=== PATIENT | male | born 1970 | race African-American/Black ===

== ENCOUNTER 2020-12-08 11:37 | Inpatient (IN) | payer MEDICAID, OTHER, SELFPAY ==
--- NOTE | ~2020-12-08 | CT_ITS ---
PROCEDURE: CT-GUIDED BIOPSY, LIVER CLINICAL INFORMATION: Right hepatic mass. COMPARISON: 12/08/2020 TECHNIQUE: CT fluoroscopic-guided core biopsy right liver mass. This CT examination was performed using dose optimization techniques as appropriate, variously including the following: *Automated exposure control. *Adjustment of mA and/or kV according to patient size (this includes techniques or standardized protocols for targeted exams where dose is matched to indication/reason for exam; i.e. extremities or head). *Use of iterative reconstruction technique. DLP: 445 mGy-cm FINDINGS: Informed consent was obtained from the patient prior to the procedure. During this process, the procedure and potential alternatives were explained, along with the intended outcome and benefits. The risks of the procedure, as well as the risk of not doing the procedure, were discussed. The patient was given the opportunity to ask questions regarding the procedure and appeared competent to make medical decisions. A signed consent form which documents this discussion was placed in the medical record. There is noted to be pericardial effusion, bilateral pleural effusions, and ascites present. There are a few right pericardial enlarged lymph nodes present. The liver has a lobular contour. The right hepatic mass is not as evident without IV contrast and biopsy was performed using landmarks. The farhad hepatis soft tissue mass is evident. Cholelithiasis is seen. There was a good window laterally into the mass where there was not a large amount of pleural fluid present and, therefore, preprocedure paracentesis was not performed. Conscious sedation was used for the study. Conscious Sedation Time: 25 minutes. Using sterile technique and CT fluoroscopic guidance, a 17-gauge coaxial needle was directed into the right lobe. Two 18-gauge core biopsies were obtained. Preliminary pathologic result was of satisfactory sample. Patient tolerated the procedure without difficulty. Postprocedure CT scan did not demonstrate any evidence of hemorrhage or subcapsular fluid collection. CT/CT biopsy liver IMPRESSION: Successful CT fluoroscopic-guided core biopsy right lobe of liver lesion.
--- NOTE | ~2020-12-08 | CT_ITS ---
EXAMINATION: CT CHEST, ABDOMEN AND PELVIS WITH CONTRAST CLINICAL INFORMATION: Cough and abdominal pain right-sided COMPARISON: No pertinent prior studies are available for comparison. TECHNIQUE: Multidetector volumetric imaging was performed from the thoracic inlet through the pubic symphysis following administration of oral and 85 mL of Omnipaque 350 intravenous contrast. Sagittal and coronal reformatted images were obtained on the technologist workstation. This CT examination was performed using dose optimization techniques as appropriate, variously including the following: *Automated exposure control *Adjustment of mA and/or kV according to patient size (this includes techniques or standardized protocols for targeted exams where dose is matched to indication/reason for exam; i.e. extremities or head) *Use of iterative reconstruction technique DLP: 593 mGy-cm FINDINGS: Motion degradation limits assessment. CHEST: LUNGS: The lungs are clear with no evidence of inflammation or nodules. Minor dependent atelectasis. MEDIASTINUM: The mediastinum is normal. Central vascular structures are unremarkable. No hilar or mediastinal lymphadenopathy. PERICARDIUM/PLEURA: There is moderate pericardial effusion and small layering pleural effusions. CHEST WALL/AXILLA: Symmetrical gynecomastia. ABDOMEN/PELVIS: LIVER, GALLBLADDER, BILIARY TREE: Liver is very nodular's and cirrhotic appearing. There is a very ill-defined area of heterogeneously decreased attenuation throughout the right lobe suspicious for a mass lesion. Hepatic and portal vessels appear grossly patent. No biliary ductal dilatation. Gallstones without acute inflammatory changes. PANCREAS: Unremarkable. SPLEEN: Enlarged measuring up to approximately 14.6 cm. No discrete lesion. ADRENAL GLANDS: Unremarkable. KIDNEYS AND URETERS: Not obstructing multiple small central renal calculi measuring 3 to 4 mm in maximum diameter. Left renal cortical cysts. No perinephric abnormality. BLADDER: Unremarkable. GASTROINTESTINAL TRACT: The small and large bowel are unremarkable. The appendix is unremarkable. ABDOMINAL WALL: No hernia is demonstrated. LYMPH NODES: Markedly enlarged soft tissue mass favoring a mantle of pathologic lymph nodes noted within the farhad hepatis measuring up to 6.7 x 6.1 cm transaxially. This is not appear to be related to duodenum or pancreas. Generalized moderate ascites throughout the abdomen and pelvis. Additional pathologically enlarged lymphadenopathy within the level of the celiac axis as well as retroperitoneum. VASCULAR: Unremarkable. PELVIC VISCERA: Unremarkable. OSSEOUS STRUCTURES: Unremarkable. CT/CT abdomen pelvis w con IMPRESSION: Ominous pattern of disease. Cirrhotic liver with a large mass replacing the right lobe which can be seen with hepatocellular carcinoma or even cholangiocarcinoma. Pathologic lymph nodes throughout the abdomen and retroperitoneum. Ascites, pleural and pericardial effusions are also present.
[2020-12-08 11:53] VITALS: BP 98/59; PULSE 75; RESP 18; TEMP 36.7; O2SAT 100; BMI 29.0
[2020-12-08 13:03] LABS: Basophils Absolute Auto 0.1 X10*3/uL (0.0-0.2); Basophils Percent Auto 0.2 % (0-2); Eosinophils Absolute Auto 0.2 X10*3/uL (0.0-0.4); Eosinophils Percent Auto 0.5 % (0-4); Hematocrit 35.7 % (42-52); Hemoglobin 11.6 g/dl (14.0-18.0); Imm Gran Abs Auto 0.37 X10*3/uL (0.00-0.03); Lymphocytes Absolute Auto 1.4 X10*3/uL (1.2-4.9); Lymphocytes Percent Auto 3.9 % (20-40); MANUAL DIFF FLAG SCAN; Mean Corpuscular HGB Conc 32.5 g/dl (31.0-36.0); Mean Corpuscular Hemoglobin 33.6 pg (27.0-33.0); Mean Corpuscular Volume 103.5 fL (80-98); Monocytes Absolute Auto 1.7 X10*3/uL (0.1-1.2); Monocytes Percent Auto 4.9 % (2-11); Neutrophils Absolute Auto 31.6 X10*3/uL (2.0-8.3); Neutrophils Percent Auto 89.5 % (45-73); Platelet Count 208 X10*3/uL (160-400); Red Blood Count 3.45 X10*6/uL (4.60-5.80); Red Cell Distribution Width 12.7 % (11.0-16.0); SCAN SMEAR FLAG 1
[2020-12-08 13:04] LABS: White Blood Count 35.3 X10*3/uL (4.8-10.8)
[2020-12-08 13:11] LABS: SLIDE REVIEW VERIFIED
[2020-12-08 13:29] LABS: Anion Gap 12 (12-20); Blood Urea Nitrogen 15 mg/dL (9-16); Carbon Dioxide 25 mmol/L (22-29); Chloride 101 mmol/L (96-108); Creatinine Clr Calc Pharmacy 99.6; Estimated Glomerular Filt Rate > 60; Glucose Random 114 mg/dL (60-115); Potassium 4.7 mmol/L (3.3-5.1); Sodium 133 mmol/L (135-145)
[2020-12-08] MEDS: 0.9 % Sodium Chloride 1,000 ML 999 ML IV ×2 (14:31→14:33)
[2020-12-08 14:36] LABS: Glucose Urine UA NEG (NEG); Leukocyte Esterase Urine NEG (NEG); Nitrite Urine POS (NEG); PH 5.5 (5.0-8.0); Specific Gravity - Urine >= 1.030 (1.005-1.025); UACC Culture Trigger YES; Urine Blood NEG (NEG); Urine Ketones NEG (NEG); Urine Protein 1+ MG/DL (NEG-TRACE)
[2020-12-08 14:37] LABS: Appearance Urine CLEAR; Color Urine AMBER
[2020-12-08 14:53] LABS: COVID-19 Test Negative (Negative); IDNOW Serial# 9DD0AD1C
[2020-12-08 14:54] LABS: Amorphous Sediment Urine TRACE /LPF; Bacteria Urine TRACE /LPF; Mucus Urine 2+ /LPF; RBC Urine 0-2 /HPF (0); Squamous Epithelial Cell Urine TRACE /LPF
[2020-12-08 14:58] LABS: Lactic Acid 1.6 mmol/L (0.5-2.0)
--- NOTE | 2020-12-08 15:34 | ED_ITS ---
HPI - General Adult General Chief complaint: Upper Respiratory Symptoms Stated complaint: vomiting, abd pain, diarrhea Time Seen by Provider: 12/08/20 13:48 Source: patient Mode of arrival: ambulatory Limitations: no limitations History of Present Illness HPI narrative: PATIENT PRESENTS TO ED FOR COUGHING AND RIGHT SIDED ABDOMINAL PAIN FOR THE PAST 4 DAYS. pATIENT DENIES ANY NAUSEA, EMESIS, DYURIA, HEMATURIA, FEVER, CHILLS, OR FLANK PAIN. Related Data Home Medications Medication Instructions Recorded Confirmed multivitamin-ferrous 1 tab PO DAILY 12/08/20 12/08/20 fumarate-folic acid 18 mg-400 mcg tablet (Centrum) Allergies Allergy/AdvReac Type Severity Reaction Status Date / Time No Known Allergies Allergy Verified 12/08/20 12:00 Review of Systems 2 Review of Systems: Yes all other systems are reviewed and are negative Constitutional: Constitutional: Reports as per HPI and Reports no additional constitutional complaints Eyes: Eyes: Reports as per HPI and Reports no additional eye complaints ENT: Reports system reviewed and no additional complaints, except as documented and Reports as per HPI Cardiovascular: Cardiovascular: Reports as per HPI and Reports no additional cardiovascular complaints Respiratory: Respiratory: Reports as per HPI, Reports no additional respi ratory complaints and Reports cough Gastrointestinal: Gastrointestinal: Reports as per HPI, Reports no additional gastrointestinal complaints and Reports abdominal pain (RIGHT SIDE) Genitourinary: Genitourinary: Reports no additional male genitourinary complaints and Reports as per HPI [facility] Past Medical History Medical History HBV (hepatitis B virus) infection Liver cirrhosis Social History Social History Alcohol intake: current Patient Tobacco Use Status: Never used Tobacco Smoked in Last 30 Days: No Use of substances other than those prescribed or required for medical reasons: No Advance Directives: No Advance Directives Information Provided: Yes Physical Exam Vital Signs: Vital Signs: Last Vital Signs Temp 98.1 F 12/08/20 11:53 Pulse 76 12/08/20 16:00 Resp 18 12/08/20 16:00 BP 102/62 12/08/20 16:00 Pulse Ox 96 12/08/20 16:00 Body Mass Index 29.0 Const: General: cooperative, healthy appearing, comfortable, no acute distress, well developed, alert, awake and Physically active [place] ation/consciousness: oriented to person and oriented to place HENMT: Head: Yes normal to inspection, Yes No palpable skull fracture present, Yes normocephalic and Yes atraumatic Eyes: Other: ICTERUS Neck: Neck: Yes normal visual inspection and Yes full ROM Chest: Chest palpation & inspection: normal inspection of the chest and normal palpation of entire chest wall Resp: Effort & Inspection: normal respiratory effort and able to speak in complete sentences Auscultation: clear to auscultation bilaterally Cardio: Jugular venous distension: no JVD Heart sounds: S1 normal heart sound present and S2 normal heart sound present GI: Inspection: Yes normal to inspection and No abdominal wall ecchymosis Palpation (GI): Soft to palpation, not firm, Tenderness to palpation present (GI) in the RUQ; Negative for not in the LLQ, not in the RLQ, not in the LUQ, not at McBurney's point, not periumbilically, not suprapubicly, Beckford's sign negative and psoas sign negative, no guarding and not rigid : General: No CVA tenderness and Yes no CVA tenderness Back/Spine/Pelvis: Back: no CVA tenderness, No CVA tenderness and No back tenderness Skin: General skin exam: no rashes or lesions noted and elasticity normal Neuro: General: oriented to person and oriented to place Cranial nerves: Yes CN's II-XII intact bilaterally Extrem: General: Yes normal to inspection and Yes full ROM Right upper extremity: normal to inspection Psych: Appearance: grossly normal, well kempt and not disheveled Course Course Course Narrative: PATIENT WAS RECOMMENDED SCREENING HAS A WHITE BLOOD CELL COUNT 23021. LACTIC ACID AND BLOOD CULTURE ORDERED. PATIENT SENT FOR CHEST CT AND ABDOMINAL CT. PENDING UA Reevaluation(s) Reevaluation #1: Patient started on Zosyn. Lactic acid is normal. Abdominal CT scan shows liver cancer with ascites. Patient to be admitted for leukocytosis and cancer of the liver. Urine positive for nitrate. Case accepeted by Dr. Merrill Time: 17:14 Medical Decision Making MDM Narrative Medical decision making narrative: Liver cancer. UTI Lab Data Result diagrams: 12/08/20 12:34 12/08/20 12:34 Labs: Lab Results 12/08/20 12/08/20 12/08/20 Range/Units 12:34 12:34 14:27 WBC 35.3 H* (4.8-10.8) X10*3/uL RBC 3.45 L (4.60-5.80) X10*6/uL Hgb 11.6 L (14.0-18.0) g/dl Hct 35.7 L (42-52) % MCV 103.5 H (80-98) fL MCH 33.6 H (27.0-33.0) pg MCHC 32.5 (31.0-36.0) g/dl RDW 12.7 (11.0-16.0) % Plt Count 208 (160-400) X10*3/uL MPV 10.0 (9.4-12.4) fL Immature Gran % (Auto) 1.0 H (0.0-0.4) % Neut % (Auto) 89.5 H (45-73) % Lymph % (Auto) 3.9 L (20-40) % [place] % (Auto) 4.9 (2-11) % Eos % (Auto) 0.5 (0-4) % Baso % (Auto) 0.2 (0-2) % Lymph # (Auto) 1.4 (1.2-4.9) X10*3/uL [place] # (Auto) 1.7 H (0.1-1.2) X10*3/uL Eos # (Auto) 0.2 (0.0-0.4) X10*3/uL Baso # (Auto) 0.1 (0.0-0.2) X10*3/uL Abs Immat Gran (auto) 0.37 H (0.00-0.03) X10*3/uL Absolute Neuts (auto) 31.6 H (2.0-8.3) X10*3/uL Absolute Nucleated RBC 0.000 (0.0-0.012) X10*3/uL Nucleated RBC % (auto) 0.0 (0.0-0.2) /100WBC Smear Tech's Comments VERIFIED Sodium 133 L (135-145) mmol/L Potassium 4.7 (3.3-5.1) mmol/L Chloride 101 (96-108) mmol/L Carbon Dioxide 25 (22-29) mmol/L Anion Gap 12 (12-20) BUN 15 (9-16) mg/dL Creatinine 0.85 (0.5-1.4) mg/dL Estim Creat Clear Calc 99.6 Estimated GFR > 60 Random Glucose 114 (60-115) mg/dL Lactic Acid (0.5-2.0) mmol/L Calcium 9.0 (8.4-10.2) mg/dL Urine Color Urine Appearance Urine pH (5.0-8.0) Ur Specific [place] (1.005-1.025) Urine Protein (NEG-TRACE) MG/DL Urine Glucose (UA) (NEG) MG/DL Urine Ketones (NEG) MG/DL Urine Blood (NEG) Urine Nitrite (NEG) Ur Leukocyte Esterase (NEG) Urine RBC (0) /HPF Urine WBC (0-4) /HPF Ur Squamous Epith Cells /LPF Amorphous Sediment /LPF Urine Bacteria /LPF Urine Mucus /LPF COVID-19 (TREY) Negative (Negative) COVID-19 Clin Com See Note 12/08/20 12/08/20 Range/Units 14:28 14:28 WBC (4.8-10.8) X10*3/uL RBC (4.60-5.80) X10*6/uL Hgb (14.0-18.0) g/dl Hct (42-52) % MCV (80-98) fL MCH (27.0-33.0) pg MCHC (31.0-36.0) g/dl RDW (11.0-16.0) % Plt Count (160-400) X10*3/uL MPV (9.4-12.4) fL Immature Gran % (Auto) (0.0-0.4) % Neut % (Auto) (45-73) % Lymph % (Auto) (20-40) % [place] % (Auto) (2-11) % Eos % (Auto) (0-4) % Baso % (Auto) (0-2) % Lymph # (Auto) (1.2-4.9) X10*3/uL [place] # (Auto) (0.1-1.2) X10*3/uL Eos # (Auto) (0.0-0.4) X10*3/uL Baso # (Auto) (0.0-0.2) X10*3/uL Abs Immat Gran (auto) (0.00-0.03) X10*3/uL Absolute Neuts (auto) (2.0-8.3) X10*3/uL Absolute Nucleated RBC (0.0-0.012) X10*3/uL Nucleated RBC % (auto) (0.0-0.2) /100WBC Smear Tech's Comments Sodium (135-145) mmol/L Potassium (3.3-5.1) mmol/L Chloride (96-108) mmol/L Carbon Dioxide (22-29) mmol/L Anion Gap (12-20) BUN (9-16) mg/dL Creatinine (0.5-1.4) mg/dL Estim Creat Clear Calc Estimated GFR Random Glucose (60-115) mg/dL Lactic Acid 1.6 (0.5-2.0) mmol/L Calcium (8.4-10.2) mg/dL Urine Color PATRICIA Urine Appearance CLEAR Urine pH 5.5 (5.0-8.0) Ur Specific [place] >= 1.030 H (1.005-1.025) Urine Protein 1+ H (NEG-TRACE) MG/DL Urine Glucose (UA) NEG (NEG) MG/DL Urine Ketones NEG (NEG) MG/DL Urine Blood NEG (NEG) Urine Nitrite POS H (NEG) Ur Leukocyte Esterase NEG (NEG) Urine RBC 0-2 (0) /HPF Urine WBC 1-4 (0-4) /HPF Ur Squamous Epith Cells TRACE /LPF Amorphous Sediment TRACE /LPF Urine Bacteria TRACE /LPF Urine Mucus 2+ /LPF COVID-19 (TREY) (Negative) COVID-19 Clin Com Discharge Plan Discharge Clinical Impression: Acute UTI, Cancer of liver Patient Disposition: Admitted As Inpatient
[2020-12-08] MEDS: iohexoL 350 MG/ML 100 ML INFUS..BTL IV (15:39)
[2020-12-08] MEDS: Piperacillin Sodium/Tazobactam 3.375 GM in 0.9 % Sodium Chloride 50 ML IV (15:42)
[2020-12-08 16:00] VITALS: BP 102/62; PULSE 76; RESP 18; O2SAT 96
--- NOTE | 2020-12-08 16:07 | HE.PHANOTE ---
Pharmacy Consult ? Medication Reconciliation Pharmacy has completed the medication reconciliation and there were no significant medication issues requiring provider attention.? Sayra CaputoD
--- NOTE | 2020-12-08 17:42 | P.HPHOSP_ITS ---
History of Present Illness Date of Service: 12/08/20 Chief Complaint: abd pain 50M presented with severe RUQ abdominal pain, inability to tolerate po. pain started about 2 weeks ptp, has worsened to point where patient decided to come to ED. patient has hstiory of long standing HBV and cirrhosis, no longer on jabari tment. he reports 83 lbs weight loss over last 2 years. he reports subjective fevers and night sweats. in ED CT abdomen showed large liver mass with lymph nodes. labs significant for WBC 32, mostly neutrophils. Review of Systems Review of Systems: Constitutional: fever Eyes: denies blurry vision ENT: denies sore throat CVS: denies chest pain Respiratory: Denies dyspnea GI: abdominal pain : denies dysuria MSK: denies neck pain Skin: denies rash Neuro: denies specific motor weakness Psych: denies suicidal ideation Endocrine: denies heat/cold intolerance Hematologic: denies easy bleeding Allergy: denies hives [facility] Medical History HBV (hepatitis B virus) infection Liver cirrhosis Family history: reviewed and not pertinent Social History Alcohol intake: current Patient Tobacco Use Status: Never used Tobacco Smoked in Last 30 Days: No Use of substances other than those prescribed or required for medical reasons: No Advance Directives: No Advance Directives Information Provided: Yes Meds Allergies Allergy/AdvReac Type Severity Reaction Status Date / Time No Known Allergies Allergy Verified 12/08/20 12:00 Active Medications: Current Medications Generic Name Dose Route Start Last Admin Trade Name Brittny PRN Reason Stop Dose Admin Pharmacy Consult 1 each 12/08/20 15:26 Consult Rx Perform Med Rec MISCELLANE ONCE PRN Consult order Pharmacy Consult 1 each 12/08/20 17:26 Consult Rx Perform Med Rec MISCELLANE ONCE PRN Consult order Home Medications Medication Instructions Recorded Confirmed Last Taken Type multivitamin-ferrous 1 tab PO DAILY 12/08/20 12/08/20 12/06/20 History fumarate-folic acid 18 mg-400 mcg tablet (Centrum) Physical Exam Vital Signs and Narrative: Vital Signs: Last Vital Signs Temp 98.1 F 12/08/20 11:53 Pulse 76 12/08/20 16:00 Resp 18 12/08/20 16:00 BP 102/62 08/20/21 16:00 Pulse Ox 96 12/08/20 16:00 Body Mass Index 29.0 General: appears in discomfort, ill appearing HEENT: atraumatic, juandiced Neck: normal to visual inspection CVS: S1, S2, RRR Resp: CTA bilateral Chest: non tender GI: soft, non tender, non distended, splenomegaly : no CVA tenderness Skin: no rashes Extremities: no edema Neuro: Oriented X3, grossly intact Psych: cooperative Results Labs CBC and Chem 7: 12/08/20 12:34 12/08/20 12:34 Labs: Laboratory Results - last 24 hr 12/08/20 12/08/20 12/08/20 12:34 12:34 14:27 MCV 103.5 H MCH 33.6 H MCHC 32.5 RDW 12.7 Plt Count 208 MPV 10.0 Immature Gran % (Auto) 1.0 H Neut % (Auto) 89.5 H Lymph % (Auto) 3.9 L [place] % (Auto) 4.9 Eos % (Auto) 0.5 Baso % (Auto) 0.2 Lymph # (Auto) 1.4 [place] # (Auto) 1.7 H Eos # (Auto) 0.2 Baso # (Auto) 0.1 Abs Immat Gran (auto) 0.37 H Absolute Neuts (auto) 31.6 H Absolute Nucleated RBC 0.000 Nucleated RBC % (auto) 0.0 Smear Tech's Comments VERIFIED Anion Gap 12 Estim Creat Clear Calc 99.6 Estimated GFR > 60 Random Glucose 114 Lactic Acid Calcium 9.0 Urine Color Urine Appearance Urine pH Ur Specific [place] Urine Protein Urine Glucose (UA) Urine Ketones Urine Blood Urine Nitrite Ur Leukocyte Esterase Urine RBC Urine WBC Ur Squamous Epith Cells Amorphous Sediment Urine Bacteria Urine Mucus COVID-19 (TREY) Negative COVID-19 Clin Com See Note 12/08/20 12/08/20 14:28 14:28 MCV MCH MCHC RDW Plt Count MPV Immature Gran % (Auto) Neut % (Auto) Lymph % (Auto) [place] % (Auto) Eos % (Auto) Baso % (Auto) Lymph # (Auto) [place] # (Auto) Eos # (Auto) Baso # (Auto) Abs Immat Gran (auto) Absolute Neuts (auto) Absolute Nucleated RBC Nucleated RBC % (auto) Smear Tech's Comments Anion Gap Estim Creat Clear Calc Estimated GFR Random Glucose Lactic Acid 1.6 Calcium Urine Color PATRICIA Urine Appearance CLEAR Urine pH 5.5 Ur Specific [place] >= 1.030 H Urine Protein 1+ H Urine Glucose (UA) NEG Urine Ketones NEG Urine Blood NEG Urine Nitrite POS H Ur Leukocyte Esterase NEG Urine RBC 0-2 Urine WBC 1-4 Ur Squamous Epith Cells TRACE Amorphous Sediment TRACE Urine Bacteria TRACE Urine Mucus 2+ COVID-19 (TREY) COVID-19 Clin Com Imaging Radiologist's Impressions: Impressions Abdomen/Pelvis CT 12/08/20 14:11 IMPRESSION: Ominous pattern of disease. Cirrhotic liver with a large mass replacing the right lobe which can be seen with hepatocellular carcinoma or even cholangiocarcinoma. Pathologic lymph nodes throughout the abdomen and retroperitoneum. Ascites, pleural and pericardial effusions are also present. Chest CT 12/08/20 14:11 IMPRESSION: Ominous pattern of disease. Cirrhotic liver with a large mass replacing the right lobe which can be seen with hepatocellular carcinoma or even cholangiocarcinoma. Pathologic lymph nodes throughout the abdomen and retroperitoneum. Ascites, pleural and pericardial effusions are also present. Assessment and Plan (1) Liver cirrhosis: Status: Acute 50M presented with abdominal pain found to have liver mass liver mass in setting of HBV and cirrhosis likely HCC check afp oncology eval pain control leukocytosis ?related to above, no clear infection Quality Stroke Does the patient have a stroke diagnosis?: No VTE Prior VTE?: No VTE Risk Level:: Medical - moderate - high VTE Device Contraindication: Treatment Not Indicated VTE Drug Contraindication: N/A - Med Ordered
[2020-12-08 21:24] VITALS: BP 124/65; PULSE 89; RESP 18; TEMP 36.7; O2SAT 96
[2020-12-08 23:41] VITALS: BP 107/61; PULSE 87; RESP 18; TEMP 37.1; O2SAT 95
[2020-12-09] MEDS: 0.9 % Sodium Chloride Flush 3 ML SYRINGE IVFLUSH ×3 (01:23→16:00)
[2020-12-09 03:24] VITALS: BP 91/49; PULSE 66; RESP 18; TEMP 35.7; O2SAT 98
[2020-12-09 07:01] LABS: Hematocrit 33.2 % (42-52); Hemoglobin 10.5 g/dl (14.0-18.0); Mean Corpuscular HGB Conc 31.6 g/dl (31.0-36.0); Mean Corpuscular Hemoglobin 33.1 pg (27.0-33.0); Mean Corpuscular Volume 104.7 fL (80-98); Mean Platelet Volume 11.3 fL (9.4-12.4); Platelet Count 213 X10*3/uL (160-400); Red Blood Count 3.17 X10*6/uL (4.60-5.80); Red Cell Distribution Width 12.6 % (11.0-16.0); White Blood Count 27.8 X10*3/uL (4.8-10.8)
[2020-12-09 07:19] LABS: Alanine Aminotransferase 56 U/L (0-40); Albumin Level 2.5 g/dL (3.5-5.0); Alkaline Phosphatase 139 U/L (39-117); Anion Gap 11 (12-20); Aspartate Amino Transferase 47 U/L (5-37); Bilirubin Direct 0.5 mg/dL (0.0-0.5); Bilirubin Total 0.8 mg/dL (0.0-1.0); Blood Urea Nitrogen 16 mg/dL (9-16); Calcium 8.3 mg/dL (8.4-10.2); Carbon Dioxide 24 mmol/L (22-29); Chloride 106 mmol/L (96-108); Creatinine Clr Calc Pharmacy 115.9; Estimated Glomerular Filt Rate > 60; Glucose Fasting 113 mg/dL (60-99); Lactate Dehydrogenase 146 U/L (118-273); Potassium 5.3 mmol/L (3.3-5.1); Sodium 136 mmol/L (135-145); Total Protein 6.3 g/dL (6.5-8.0)
[2020-12-09 07:57] VITALS: BP 85/46; PULSE 67; RESP 18; TEMP 36.5; O2SAT 96
[2020-12-09] MEDS: Enoxaparin Sodium 40 MG/0.4 ML SYRINGE SUBCUT (09:37)
--- NOTE | 2020-12-09 10:08 | P.PNIM_ITS ---
Subjective Subjective Date of Service: 12/09/20 Interval History: pain better Cardiovascular Cardiovascular: Reports no additional cardiovascular complaints Respiratory Respiratory: Reports no additional respiratory complaints Physical Exam 2 Vital Signs: Vital Signs: Last Vital Signs Temp 97.7 F 12/09/20 07:57 Pulse 67 12/09/20 07:57 Resp 18 12/09/20 07:57 BP 85/46 L 12/09/20 07:57 Pulse Ox 96 12/09/20 07:57 Body Mass Index 29.0 General: AO X 3, no acute distress Resp: CTA bilateral CVS: S1,S2,RRR GI: soft, non tender,splenomegaly Neuro: motor grossly intact Psych: appropriate affect Objective Data Current Medications Generic Name Dose Route Start Last Admin Trade Name Freq PRN Reason Stop Dose Admin Enoxaparin Sodium 40 mg 12/09/20 08:00 12/09/20 09:37 Enoxaparin Sodium 40 Mg/0.4 Ml Syringe SUBCUT 40 mg Q24H KRISTIE Administration Multivitamins/Minerals 1 tab 12/09/20 09:00 12/09/20 09:37 Multivitamin With Minerals Tablet PO 1 tab DAILY KRISTIE Administration Oxycodone HCl 5 mg 12/08/20 17:38 Oxycodone Hcl Immed Release 5 Mg Tablet PO Q6H PRN pain Pharmacy Consult 1 each 12/08/20 15:26 Consult Rx Perform Med Rec MISCELLANE ONCE PRN Consult order Pharmacy Consult 1 each 12/08/20 17:26 Consult Rx Perform Med Rec MISCELLANE ONCE PRN Consult order Sodium Chloride 3 ml 12/09/20 00:00 12/09/20 09:37 0.9 % Sodium Chloride Flush 3 Ml Syringe IVFLUSH 3 ml QSHIFT KRISTIE Administration Labs CBC & Chem 7: 12/09/20 05:20 12/09/20 05:20 Labs: Laboratory Results - last 24 hr 12/08/20 12/08/20 12/08/20 12:34 12:34 14:27 MCV 103.5 H MCH 33.6 H MCHC 32.5 RDW 12.7 Plt Count 208 MPV 10.0 Immature Gran % (Auto) 1.0 H Neut % (Auto) 89.5 H Lymph % (Auto) 3.9 L [place] % (Auto) 4.9 Eos % (Auto) 0.5 Baso % (Auto) 0.2 Lymph # (Auto) 1.4 [place] # (Auto) 1.7 H Eos # (Auto) 0.2 Baso # (Auto) 0.1 Abs Immat Gran (auto) 0.37 H Absolute Neuts (auto) 31.6 H Absolute Nucleated RBC 0.000 Nucleated RBC % (auto) 0.0 Smear Tech's Comments VERIFIED Anion Gap 12 Estim Creat Clear Calc 99.6 Estimated GFR > 60 Random Glucose 114 Fasting Glucose Lactic Acid Calcium 9.0 Total Bilirubin Direct Bilirubin AST ALT Alkaline Phosphatase Lactate Dehydrogenase Total Protein Albumin Urine Color Urine Appearance Urine pH Ur Specific [place] Urine Protein Urine Glucose (UA) Urine Ketones Urine Blood Urine Nitrite Ur Leukocyte Esterase Urine RBC Urine WBC Ur Squamous Epith Cells Amorphous Sediment Urine Bacteria Urine Mucus COVID-19 (TREY) Negative COVID-19 Clin Com See Note 12/08/20 12/08/20 12/09/20 14:28 14:28 05:20 MCV 104.7 H MCH 33.1 H MCHC 31.6 RDW 12.6 Plt Count 213 MPV 11.3 Immature Gran % (Auto) Neut % (Auto) Lymph % (Auto) [place] % (Auto) Eos % (Auto) Baso % (Auto) Lymph # (Auto) [place] # (Auto) Eos # (Auto) Baso # (Auto) Abs Immat Gran (auto) Absolute Neuts (auto) Absolute Nucleated RBC 0.000 Nucleated RBC % (auto) 0.0 Smear Tech's Comments Anion Gap Estim Creat Clear Calc Estimated GFR Random Glucose Fasting Glucose Lactic Acid 1.6 Calcium Total Bilirubin Direct Bilirubin AST ALT Alkaline Phosphatase Lactate Dehydrogenase Total Protein Albumin Urine Color PATRICIA Urine Appearance CLEAR Urine pH 5.5 Ur Specific [place] >= 1.030 H Urine Protein 1+ H Urine Glucose (UA) NEG Urine Ketones NEG Urine Blood NEG Urine Nitrite POS H Ur Leukocyte Esterase NEG Urine RBC 0-2 Urine WBC 1-4 Ur Squamous Epith Cells TRACE Amorphous Sediment TRACE Urine Bacteria TRACE Urine Mucus 2+ COVID-19 (TREY) COVID-19 Clin Com 12/09/20 05:20 MCV MCH MCHC RDW Plt Count MPV Immature Gran % (Auto) Neut % (Auto) Lymph % (Auto) [place] % (Auto) Eos % (Auto) Baso % (Auto) Lymph # (Auto) [place] # (Auto) Eos # (Auto) Baso # (Auto) Abs Immat Gran (auto) Absolute Neuts (auto) Absolute Nucleated RBC Nucleated RBC % (auto) Smear Tech's Comments Anion Gap 11 L Estim Creat Clear Calc 115.9 Estimated GFR > 60 Random Glucose Fasting Glucose 113 H Lactic Acid Calcium 8.3 L D Total Bilirubin 0.8 Direct Bilirubin 0.5 AST 47 H ALT 56 H Alkaline Phosphatase 139 H Lactate Dehydrogenase 146 Total Protein 6.3 L Albumin 2.5 L Urine Color Urine Appearance Urine pH Ur Specific [place] Urine Protein Urine Glucose (UA) Urine Ketones Urine Blood Urine Nitrite Ur Leukocyte Esterase Urine RBC Urine WBC Ur Squamous Epith Cells Amorphous Sediment Urine Bacteria Urine Mucus COVID-19 (TREY) COVID-19 Clin Com Assessment and Plan (1) Cancer of liver: Status: Acute Assessment and Plan: 50M presented with abdominal pain found to have liver mass liver mass in setting of HBV and cirrhosis likely HCC follow up afp oncology eval pain control - imporved leukocytosis ?related to above, no clear infection Quality Stroke Does the patient have a stroke diagnosis?: No VTE Prior VTE?: No VTE Risk Level:: Medical - moderate - high VTE Device Contraindication: Treatment Not Indicated VTE Drug Contraindication: N/A - Med Ordered
[2020-12-09 12:00] VITALS: BP 106/60; PULSE 81; RESP 18; TEMP 36.9; O2SAT 98
[2020-12-09 16:00] VITALS: BP 95/61; PULSE 75; RESP 16; TEMP 36.8; O2SAT 98
[2020-12-09 18:59] VITALS: BP 86/52; PULSE 69; RESP 16; TEMP 37.1; O2SAT 99
[2020-12-09 23:12] VITALS: BP 111/63; PULSE 78; RESP 18; TEMP 36.9; O2SAT 97
[2020-12-10] VITALS (7 sets, daily range): BP systolic 105–112; BP diastolic 61–65; PULSE 71–77; RESP 17–18; TEMP 36.8–37.3; O2SAT 96–98
[2020-12-10] MEDS: 0.9 % Sodium Chloride Flush 3 ML SYRINGE IVFLUSH ×3 (04:26→15:56)
--- NOTE | 2020-12-10 10:02 | P.PNIM_ITS ---
Subjective Subjective Date of Service: 12/10/20 Interval History: pain better Cardiovascular Cardiovascular: Reports no additional cardiovascular complaints Respiratory Respiratory: Reports no additional respiratory complaints Physical Exam 2 Vital Signs: Vital Signs: Last Vital Signs Temp 98.5 F 12/10/20 08:00 Pulse 72 12/10/20 04:00 Resp 18 12/10/20 07:56 BP 112/65 12/10/20 07:56 Pulse Ox 98 12/10/20 07:56 Body Mass Index 29.0 General: AO X 3, no acute distress Resp: CTA bilateral CVS: S1,S2,RRR GI: soft, non tender, non distended Neuro: motor grossly intact Psych: appropriate affect Objective Data Current Medications Generic Name Dose Route Start Last Admin Trade Name Freq PRN Reason Stop Dose Admin Multivitamins/Minerals 1 tab 12/09/20 09:00 12/09/20 09:37 Multivitamin With Minerals Tablet PO 1 tab DAILY KRISTIE Administration Oxycodone HCl 5 mg 12/08/20 17:38 Oxycodone Hcl Immed Release 5 Mg Tablet PO Q6H PRN pain Pharmacy Consult 1 each 12/08/20 15:26 Consult Rx Perform Med Rec MISCELLANE ONCE PRN Consult order Pharmacy Consult 1 each 12/08/20 17:26 Consult Rx Perform Med Rec MISCELLANE ONCE PRN Consult order Sodium Chloride 3 ml 12/09/20 00:00 12/10/20 04:26 0.9 % Sodium Chloride Flush 3 Ml Syringe IVFLUSH 3 ml QSHIFT KRISTIE Administration Labs CBC & Chem 7: 12/09/20 05:20 12/09/20 05:20 Microbiology Microbiology Results: Microbiology 12/08/20 14:30 Blood Culture - Preliminary Blood - Venous No growth after 24 hours. 12/08/20 14:28 Blood Culture - Preliminary Blood - Venous No growth after 24 hours. 12/08/20 Unknown Urine Culture - Final Urine clean catch - Urine king top No growth. Assessment and Plan (1) Cancer of liver: Status: Acute Assessment and Plan: 50M presented with abdominal pain found to have liver mass liver mass in setting of HBV and cirrhosis likely HCC follow up afp oncology eval pain control - imporved will plan for biopsy tomorrow, at risk for loss to follow up leukocytosis ?related to above, no clear infection Quality Stroke Does the patient have a stroke diagnosis?: No VTE Prior VTE?: No VTE Risk Level:: Medical - moderate - high VTE Device Contraindication: Treatment Not Indicated VTE Drug Contraindication: N/A - Med Ordered
[2020-12-10] MEDS: oxyCODONE HCl Immed Release 5 MG TABLET PO (10:54)
--- NOTE | 2020-12-10 11:23 | MHC.CM.PN ---
Attempted to interview patient; irish speaking. Will get machine operator assistant. Also called contact listed: address listed for patient is contact's address and contact stated that the patient lives in [place] but is not here visiting him. Contact was unable to provide any further information regarding patient. Will conduct remainder of interview via machine operator assistant.
--- NOTE | 2020-12-10 11:34 | MHC.CM.PN ---
Called men's garment fitter services and waiting. In the meantime, attempted men's garment fitter via phone as well; patient did not answer cell phone. Will wait for men's garment fitter services to arrive. CM to follow.
--- NOTE | 2020-12-10 11:59 | MHC.CM.PN ---
Interviewed patient: from [place], unable to list previous address in [place]. Stated intention is to move here and not return to [place]. Does not have previous healthcare or insurance. Indicates he is staying with his friend at the given address listed on the demographics sheet. Also states that friend will be picking him up at time of D/C and there is no need for transportation arrangements from the hospital. Does no own equipment, does no drive, etc. He is interested in assistance with obtaining insurance as well as a PCP. Will offer him a PCP list. CM to follow.
[2020-12-11] VITALS (11 sets, daily range): BP systolic 96–120; BP diastolic 55–82; PULSE 62–85; RESP 16–20; TEMP 36.1–38.5; O2SAT 93–100; BMI 29.0
[2020-12-11] MEDS: 0.9 % Sodium Chloride Flush 3 ML SYRINGE IVFLUSH ×4 (00:14→21:13)
[2020-12-11] MEDS: Acetaminophen 325 MG TABLET 650 MG PO ×2 (00:48→21:12)
[2020-12-11 04:56] LABS: Hematocrit 34.8 % (42-52); Hemoglobin 11.1 g/dl (14.0-18.0); Mean Corpuscular HGB Conc 31.9 g/dl (31.0-36.0); Mean Corpuscular Volume 103.6 fL (80-98); Mean Platelet Volume 10.5 fL (9.4-12.4); Platelet Count 230 X10*3/uL (160-400); Red Blood Count 3.36 X10*6/uL (4.60-5.80); Red Cell Distribution Width 12.4 % (11.0-16.0); White Blood Count 20.8 X10*3/uL (4.8-10.8)
[2020-12-11 05:11] LABS: INTERNATIONAL NORM RATIO 1.4 (0.9-1.1); Prothrombin Time 15.7 SEC (9.9-13.0)
[2020-12-11 05:14] LABS: Partial Thromboplastin Time 33.9 SEC (24.1-38.0)
[2020-12-11 05:21] LABS: Anion Gap 11 (12-20); Blood Urea Nitrogen 15 mg/dL (9-16); Calcium 8.5 mg/dL (8.4-10.2); Carbon Dioxide 25 mmol/L (22-29); Chloride 104 mmol/L (96-108); Creatinine Clr Calc Pharmacy 117.6; Estimated Glomerular Filt Rate > 60; Glucose Fasting 92 mg/dL (60-99); Potassium 4.9 mmol/L (3.3-5.1); Sodium 135 mmol/L (135-145)
[2020-12-11 09:22] LABS: HBc Num1 12.15 S/CO (0.00-0.79); ~HepC Num1 0.24 S/CO (0.00-0.79); ~Hepatitis C Antibody Nonreactive (Nonreactive)
[2020-12-11 09:25] LABS: ~Hepatitis B Surface Antibody NONREACTIVE (Nonreactive)
[2020-12-11 10:14] LABS: HBc Num2 12.79 S/CO; HBc Num3 12.26 S/CO
[2020-12-11 10:15] LABS: HBsAGNum2 Reactive; HBsAGNum3 Reactive; Hepatitis B Core Antibody Reactive (Nonreactive); Hepatitis B Surface Antigen Retest CNFM (Negative)
--- NOTE | 2020-12-11 11:09 | PM.HEMONCCN ---
Subjective - Subjective Chief complaint: Abdominal pain and weight loss Patient: new to practice Consult date: 12/11/20 Primary Care Provider: None Physician HPI - Consult Narrative Reason for consult: Probable hepatocellular carcinoma Narrative: Sang Teixeira is a 50 year old male from [facility] who is admitted with complaints of abdominal pain and weight loss which has been going on for several months. Patient states that he lost more than 50 lb in the last 1 year. His appetite is poor. He denies nausea or emesis but has abdominal pain in the epigastric and right upper quadrant. No fever or chills. He is rather vague about his history of hepatitis or liver cirrhosis. He does not have routine medical care here. Review of Systems - Constitutional Reports as per HPI - Cardiovascular Reports no additional cardiovascular complaints - Respiratory Reports no additional respiratory complaints - Gastrointestinal Reports abdominal pain Oncology Screenings - ECOG Performance Status ECOG Performance Status: 1 [facility] Medical History: Medical History (Last Reviewed 12/08/20 @ 17:45 by Frankie Merrill MD) HBV (hepatitis B virus) infection Liver cirrhosis Family history: reviewed and not pertinent Social History: Social History (Last Reviewed 12/08/20 @ 17:45 by Frankie Merrill MD) Living Situation History: Household Members: None Household Members: Unknown / Unable to asses Household Members: Other Housing: Apartment Alcohol History: Alcohol intake: current Tobacco History: Patient Tobacco Use Status: Former Tobacco user Smoked in Last 30 Days: No Substance Use History: Use of substances other than those prescribed or required for medical reasons: No Currently Displaying Signs/Symptoms of Drug Intoxication Withdrawal: No Domestic Abuse History: Have you been hit, kicked, punched, or otherwise hurt by someone within the past year? If so, by whom?: No Do you feel safe in your current relationship?: Yes Is there a partner from a previous relationship who is making you feel unsafe now?: No Are you made to feel afraid or neglected: No Advance Directives: Are you DNR?: No Advance Directives: No Advance Directives Information Provided: Yes Homicidal Assessment: Do you have thoughts of harming others: None Do you have a plan to hurt others: No Plan Nutrition Assessment: Recently lost weight without trying: Yes Eating poorly because of decreased appetite: Yes Nutrition Risks: No Nutritional Risk Poor oral hygiene: No Occupation Assessmet: service: No Current occupational status: unemployed Home Medications and Allergies Current Medications: Current Medications Generic Name Dose Route Start Last Admin Trade Name Brittny PRN Reason Stop Dose Admin Acetaminophen 650 mg 12/11/20 00:20 12/11/20 00:48 Acetaminophen 325 Mg Tablet PO 650 mg Q6H PRN Administration Pain, Mild (Pain Scale 1-3) Multivitamins/Minerals 1 tab 12/09/20 09:00 12/11/20 07:51 Multivitamin With Minerals Tablet PO 1 tab DAILY KRISTIE Administration Oxycodone HCl 5 mg 12/08/20 17:38 12/10/20 10:54 Oxycodone Hcl Immed Release 5 Mg Tablet PO 5 mg Q6H PRN Administration pain Pharmacy Consult 1 each 12/08/20 15:26 Consult Rx Perform Med Rec MISCELLANE ONCE PRN Consult order Pharmacy Consult 1 each 12/08/20 17:26 Consult Rx Perform Med Rec MISCELLANE ONCE PRN Consult order Sodium Chloride 3 ml 12/09/20 00:00 12/11/20 07:51 0.9 % Sodium Chloride Flush 3 Ml Syringe IVFLUSH 3 ml QSHIFT KRISTIE Administration Home Medications Medication Instructions Recorded Confirmed Type multivitamin-ferrous 1 tab PO DAILY 12/08/20 12/08/20 History fumarate-folic acid 18 mg-400 mcg tablet (Centrum) Allergies Allergy/AdvReac Type Severity Reaction Status Date / Time No Known Allergies Allergy Verified 12/08/20 12:00 Physical Exam Vital signs: Vital Signs Temp 99.3 F 12/11/20 07:27 Pulse 74 12/11/20 07:27 Resp 20 12/11/20 07:27 BP 120/63 12/11/20 07:27 Pulse Ox 95 12/11/20 07:27 Intake & Output 12/10/20 12/11/20 12/11/20 18:59 06:59 18:59 Intake Total 840 / 1080 240 / 1080 Output Total 2 / 2 Balance 838 / 1078 240 / 1078 Urine Output (Average ml/kg/hr) 0.00 0.00 Intake: Intake, Oral Amount 840 / 1080 240 / 1080 Output: Output, Urine Amount 2 / 2 Other: Breakfast % Eaten 100% Number of Unmeasured Voids 1 Number of Bowel Movements 3 Urine Bathroom Weight 79 kg - Constitutional Present: no acute distress, average body habitus - Routine HEENT Exam Head: Present: normal inspection Eye: Present: EOMI - Routine Neck Exam Absent: lymphadenopathy - Routine Respiratory Exam Present: CTAB - Routine Cardiovascular Exam Cardiovascular: Present: S1, S2 - Routine Abdominal Exam Present: organomegaly, soft Hem/Onc Consult Result - Labs CBC & Chem 7: 12/11/20 04:09 12/11/20 04:09 Labs: Short CBC 12/11/20 Range/Units 04:09 WBC 20.8 H (4.8-10.8) X10*3/uL Hgb 11.1 L (14.0-18.0) g/dl Hct 34.8 L (42-52) % Plt Count 230 (160-400) X10*3/uL BMP 12/11/20 04:09 Sodium 135 Potassium 4.9 Chloride 104 Carbon Dioxide 25 BUN 15 Creatinine 0.72 Calcium 8.5 Assessment and Plan (1) Cancer of liver Status: Acute 1. This is a 50-year-old male with history of chronic liver cirrhosis, viral hepatitis, presenting with liver mass and periportal lymphadenopathy suspicious for metastatic HCC. Ultrasound-guided liver biopsy is pending today. Based on clinical staging he has metastatic and would be a candidate for palliative/systemic therapy. He does not appear to be a surgical candidate, local therapy such as RFA would also not be helpful in this situation. Further recommendations to follow on pathology is available. 2. Leukocytosis, probable leukemoid reaction secondary to malignancy. Rule out infection. I thank you very much for this consultation.
[2020-12-11 11:36] LABS: Neutralization % 96
[2020-12-11] MEDS: Lidocaine HCl 1 % MPF 5 ML VIAL 15 ML INFILTRATI (13:57)
--- NOTE | 2020-12-11 14:13 | PM.DS ---
DS: Providers Provider Date of Service: 12/11/20 Date of admission: 12/08/20 17:40 Primary care physician: None Physician Consults: 12/08/20 17:38 Consult to Hematology / Oncology Routine Consulting Provider: Miladis Pollard Reason for consultation: liver mass, lymph nodes, history of HBV/cirrhosis, leukocytosis DS: Diagnosis Discharge Diagnosis (1) Cancer of liver: Status: Acute DS: Medications Discharge Medications Home Medications: Home Medications Medication Instructions Recorded Confirmed multivitamin-ferrous 1 tab PO DAILY 12/08/20 12/08/20 fumarate-folic acid 18 mg-400 mcg tablet (Centrum) Previous Rx's Medication Instructions Recorded oxycodone 5 mg tablet 5 mg PO Q6H PRN #10 tab 12/11/20 DS: Summary Hospital Course Hospital Course: Patient was admitted for right upper quadrant abdominal pain, found to have suspicious liver mass in the background of HBV liver cirrhosis. Patient was given oxycodone with adequate pain control. He underwent liver biopsy on 12/11/2020, results are pending and should be followed up with Oncology. Time Spent with Patient Time attestation: Total time spent providing and/or coordinating discharge services: Discharge coordination time: Greater than 30 minutes Quality: Stroke Does the patient have a stroke diagnosis?: No Physical Exam Vital Signs: Vital Signs: Last Vital Signs Temp 98.3 F 12/11/20 13:59 Pulse 70 12/11/20 13:59 Resp 20 12/11/20 13:59 BP 107/63 12/11/20 13:59 Pulse Ox 97 12/11/20 13:59 Body Mass Index 29.0 General: AO X 3, no acute distress Resp: CTA bilateral CVS: S1,S2,RRR GI: soft, non tender, non distended Neuro: motor grossly intact Psych: appropriate affect DS: Data Data Completed and Pending Pending studies at discharge: Pending at discharge 12/11/20 13:21 Surgical [PTH] Routine Labs on day of discharge: Laboratory Results - last 24 hr 12/08/20 12/11/20 12/11/20 12:34 04:09 04:09 WBC 20.8 H RBC 3.36 L Hgb 11.1 L Hct 34.8 L MCV 103.6 H MCH 33.0 MCHC 31.9 RDW 12.4 Plt Count 230 MPV 10.5 Absolute Nucleated RBC 0.000 Nucleated RBC % (auto) 0.0 Smear Path Review SEE NOTE PT 15.7 H INR 1.4 H APTT 33.9 Sodium Potassium Chloride Carbon Dioxide Anion Gap BUN Creatinine Estim Creat Clear Calc Estimated GFR Fasting Glucose Calcium Hep Bs Antigen Hep Bs Antibody Hep B Core Total Ab Hepatitis C Ab (EIA) 12/11/20 12/11/20 04:09 04:09 WBC RBC Hgb Hct MCV MCH MCHC RDW Plt Count MPV Absolute Nucleated RBC Nucleated RBC % (auto) Smear Path Review PT INR APTT Sodium 135 Potassium 4.9 Chloride 104 Carbon Dioxide 25 Anion Gap 11 L BUN 15 Creatinine 0.72 Estim Creat Clear Calc 117.6 Estimated GFR > 60 Fasting Glucose 92 Calcium 8.5 Hep Bs Antigen Confirmed Pos H Hep Bs Antibody NONREACTIVE Hep B Core Total Ab Reactive Hepatitis C Ab (EIA) Nonreactive Preliminary micro results at discharge 12/08/20 14:30 Blood Culture - Preliminary Blood - Venous No growth after 48 hours. 12/08/20 14:28 Blood Culture - Preliminary Blood - Venous No growth after 48 hours. Discharge Plan Discharge Patient Disposition: Home, Self-Care Discharge Diagnosis: liver cancer Referrals: Miladis Pollard MD [Physician] - 1 Week Physician,None [Primary Care Provider] - 1 Week Discharge Medications: New oxycodone 5 mg Tablet 5 mg PO Q6H PRN (Reason: pain) Qty: 10 RF: 0 Continued Centrum 18-400 mg-mcg Tablet 1 tab PO DAILY RF: 0 Discharge Orders: Discharge Order (Routine); Ordered 12/11/20 Ordered By: Frankie Merrill Diet: advance to usual diet Activity on Discharge: As tolerated Stand Alone Forms: Patient Portal Discharge page Care Plan Goals: manage liver cancer Health Concerns: liver cancer and cirrhosis Plan of Treatment: call dr pollard's office to make appointment for results and further treatement Assessment: see above
--- NOTE | 2020-12-11 14:17 | MHC.CM.PN ---
pt dcd home no servceis
--- NOTE | 2020-12-11 16:05 | PC.NURSE ---
Patient currently on bedrest s/p liver biopsy . And soft ND/NT. +BS.
--- NOTE | 2020-12-11 19:32 | PC.NURSE ---
attempted to discharge patient. febrile at this time. 101.2 was the highest temp we obtained. Dr. Merrill aware in addition to night MD and Night RN. Discharged will be canceled.
--- NOTE | 2020-12-11 19:49 | P.EN_ITS ---
Event Note Date of Service: 12/11/20 Event Note: pt developed fever of up to 101. was measured several times. disch arge order was discontinued and sepsis work up initiated
--- NOTE | 2020-12-11 19:49 | PM.EVENT ---
Event Note Date of Service: 12/11/20 Event Note: pt developed fever of up to 101. was measured several times. discharge order was discontinued and sepsis work up initiated
[2020-12-11 20:18] LABS: Basophils Percent Auto 0.2 % (0-2); Eosinophils Absolute Auto 0.3 X10*3/uL (0.0-0.4); Eosinophils Percent Auto 1.3 % (0-4); Hematocrit 32.3 % (42-52); Hemoglobin 10.6 g/dl (14.0-18.0); Imm Gran Abs Auto 0.15 X10*3/uL (0.00-0.03); Imm Gran Pct Auto 0.7 % (0.0-0.4); Lymphocytes Absolute Auto 1.1 X10*3/uL (1.2-4.9); Lymphocytes Percent Auto 5.2 % (20-40); MANUAL DIFF FLAG NO; Mean Corpuscular HGB Conc 32.8 g/dl (31.0-36.0); Mean Corpuscular Hemoglobin 33.7 pg (27.0-33.0); Mean Corpuscular Volume 102.5 fL (80-98); Mean Platelet Volume 9.9 fL (9.4-12.4); Monocytes Absolute Auto 1.1 X10*3/uL (0.1-1.2); Monocytes Percent Auto 4.9 % (2-11); Neutrophils Absolute Auto 18.7 X10*3/uL (2.0-8.3); Neutrophils Percent Auto 87.7 % (45-73); Platelet Count 197 X10*3/uL (160-400); Red Blood Count 3.15 X10*6/uL (4.60-5.80); Red Cell Distribution Width 12.6 % (11.0-16.0); White Blood Count 21.3 X10*3/uL (4.8-10.8)
[2020-12-11 20:37] LABS: Lactic Acid 1.9 mmol/L (0.5-2.0)
[2020-12-12] VITALS (8 sets, daily range): BP systolic 106–126; BP diastolic 59–71; PULSE 69–95; RESP 18–20; TEMP 36.6–39.5; O2SAT 92–100
--- NOTE | 2020-12-12 06:59 | HO.PM.IMPN ---
Subjective Subjective Date of Service: 12/11/20 Interval History: fevers Cardiovascular Cardiovascular: Reports no additional cardiovascular complaints Respiratory Respiratory: Reports no additional respiratory complaints Physical Exam Vital Signs: Vital Signs: Last Vital Signs Temp 97.9 F 12/12/20 03:25 Pulse 69 12/12/20 03:25 Resp 18 12/12/20 03:25 BP 126/71 12/12/20 03:25 Pulse Ox 95 12/12/20 03:25 Body Mass Index 29.0 General: AO X 3, no acute distress Resp: CTA bilateral CVS: S1,S2,RRR GI: soft, non tender, non distended Neuro: motor grossly intact Psych: appropriate affect Objective Data Current Medications Generic Name Dose Route Start Last Admin Trade Name Freq PRN Reason Stop Dose Admin Acetaminophen 650 mg 12/11/20 00:20 12/11/20 21:12 Acetaminophen 325 Mg Tablet PO 650 mg Q6H PRN Administration Pain, Mild (Pain Scale 1-3) Multivitamins/Minerals 1 tab 12/09/20 09:00 12/11/20 07:51 Multivitamin With Minerals Tablet PO 1 tab DAILY KRISTIE Administration Oxycodone HCl 5 mg 12/08/20 17:38 12/10/20 10:54 Oxycodone Hcl Immed Release 5 Mg Tablet PO 5 mg Q6H PRN Administration pain Pharmacy Consult 1 each 12/08/20 15:26 Consult Rx Perform Med Rec MISCELLANE ONCE PRN Consult order Pharmacy Consult 1 each 12/08/20 17:26 Consult Rx Perform Med Rec MISCELLANE ONCE PRN Consult order Sodium Chloride 3 ml 12/09/20 00:00 12/11/20 21:13 0.9 % Sodium Chloride Flush 3 Ml Syringe IVFLUSH 3 ml QSHIFT KRISTIE Administration Labs CBC & Chem 7: 12/11/20 20:11 12/11/20 04:09 Labs: Laboratory Results - last 24 hr 12/08/20 12/09/20 12/11/20 12:34 05:20 04:09 MCV MCH MCHC RDW Plt Count MPV Immature Gran % (Auto) Neut % (Auto) Lymph % (Auto) [place] % (Auto) Eos % (Auto) Baso % (Auto) Lymph # (Auto) [place] # (Auto) Eos # (Auto) Baso # (Auto) Abs Immat Gran (auto) Absolute Neuts (auto) Absolute Nucleated RBC Nucleated RBC % (auto) Smear Path Review SEE NOTE Lactic Acid Alpha Fetoprotein 9.0 H Hep Bs Antigen Confirmed Pos H Hep Bs Antibody NONREACTIVE Hep B Core Total Ab Reactive Hepatitis C Ab (EIA) Nonreactive 12/11/20 12/11/20 20:11 20:11 MCV 102.5 H MCH 33.7 H MCHC 32.8 RDW 12.6 Plt Count 197 MPV 9.9 Immature Gran % (Auto) 0.7 H Neut % (Auto) 87.7 H Lymph % (Auto) 5.2 L [place] % (Auto) 4.9 Eos % (Auto) 1.3 Baso % (Auto) 0.2 Lymph # (Auto) 1.1 L [place] # (Auto) 1.1 Eos # (Auto) 0.3 Baso # (Auto) 0.0 Abs Immat Gran (auto) 0.15 H Absolute Neuts (auto) 18.7 H Absolute Nucleated RBC 0.000 Nucleated RBC % (auto) 0.0 Smear Path Review Lactic Acid 1.9 Alpha Fetoprotein Hep Bs Antigen Hep Bs Antibody Hep B Core Total Ab Hepatitis C Ab (EIA) Assessment and Plan (1) Cancer of liver: Status: Acute Assessment and Plan: 50M presented with abdominal pain found to have liver mass liver mass in setting of HBV and cirrhosis likely HCC afp - 9 oncologyfollowing s/p biopsy 12/11 was going to be discharged 12/11 but developed fever unclear if infectious vs tumor fever checking cultures, resp viral panel ID eval leukocytosis ?related to above, no clear infection Quality Stroke Does the patient have a stroke diagnosis?: No VTE Prior VTE?: No VTE Risk Level:: Medical - moderate - high VTE Device Contraindication: Treatment Not Indicated VTE Drug Contraindication: N/A - Med Ordered
[2020-12-12] MEDS: 0.9 % Sodium Chloride Flush 3 ML SYRINGE IVFLUSH ×2 (08:05→18:37)
--- NOTE | 2020-12-12 10:01 | P.PNIM_ITS ---
Subjective Subjective Date of Service: 12/12/20 Interval History: was febrile yesterday, but feels ok Cardiovascular Cardiovascular: Reports no additional cardiovascular complaints Respiratory Respiratory: Reports no additional respiratory complaints Physical Exam Vital Signs: Vital Signs: Last Vital Signs Temp 99.5 F 12/12/20 07:17 Pulse 89 12/12/20 07:17 Resp 20 12/12/20 07:17 BP 114/69 12/12/20 07:17 Pulse Ox 95 12/12/20 07:17 Body Mass Index 29.0 General: AO X 3, no acute distress Resp: CTA bilateral CVS: S1,S2,RRR GI: soft, non tender, non distended Neuro: motor grossly intact Psych: appropriate affect Objective Data Current Medications Generic Name Dose Route Start Last Admin Trade Name Freq PRN Reason Stop Dose Admin Acetaminophen 650 mg 12/11/20 00:20 12/11/20 21:12 Acetaminophen 325 Mg Tablet PO 650 mg Q6H PRN Administration Pain, Mild (Pain Scale 1-3) Multivitamins/Minerals 1 tab 12/09/20 09:00 12/12/20 08:05 Multivitamin With Minerals Tablet PO 1 tab DAILY KRISTIE Administration Oxycodone HCl 5 mg 12/08/20 17:38 12/10/20 10:54 Oxycodone Hcl Immed Release 5 Mg Tablet PO 5 mg Q6H PRN Administration pain Pharmacy Consult 1 each 12/08/20 15:26 Consult Rx Perform Med Rec MISCELLANE ONCE PRN Consult order Pharmacy Consult 1 each 12/08/20 17:26 Consult Rx Perform Med Rec MISCELLANE ONCE PRN Consult order Sodium Chloride 3 ml 12/09/20 00:00 12/12/20 08:05 0.9 % Sodium Chloride Flush 3 Ml Syringe IVFLUSH 3 ml QSHIFT KRISTIE Administration Labs CBC & Chem 7: 12/11/20 20:11 12/11/20 04:09 Labs: Laboratory Results - last 24 hr 12/09/20 12/11/20 12/11/20 05:20 04:09 20:11 MCV 102.5 H MCH 33.7 H MCHC 32.8 RDW 12.6 Plt Count 197 MPV 9.9 Immature Gran % (Auto) 0.7 H Neut % (Auto) 87.7 H Lymph % (Auto) 5.2 L [place] % (Auto) 4.9 Eos % (Auto) 1.3 Baso % (Auto) 0.2 Lymph # (Auto) 1.1 L [place] # (Auto) 1.1 Eos # (Auto) 0.3 Baso # (Auto) 0.0 Abs Immat Gran (auto) 0.15 H Absolute Neuts (auto) 18.7 H Absolute Nucleated RBC 0.000 Nucleated RBC % (auto) 0.0 Lactic Acid Alpha Fetoprotein 9.0 H Hep Bs Antigen Confirmed Pos H Hep B Core Total Ab Reactive 12/11/20 20:11 MCV MCH MCHC RDW Plt Count MPV Immature Gran % (Auto) Neut % (Auto) Lymph % (Auto) [place] % (Auto) Eos % (Auto) Baso % (Auto) Lymph # (Auto) [place] # (Auto) Eos # (Auto) Baso # (Auto) Abs Immat Gran (auto) Absolute Neuts (auto) Absolute Nucleated RBC Nucleated RBC % (auto) Lactic Acid 1.9 Alpha Fetoprotein Hep Bs Antigen Hep B Core Total Ab Assessment and Plan (1) Cancer of liver: Status: Acute Assessment and Plan: 50M presented with abdominal pain found to have liver mass liver mass in setting of HBV and cirrhosis likely HCC vs other malignancy afp - only 9, ldh normal oncology following s/p biopsy 12/11, follow up pathology was going to be discharged 12/11 but developed fever unclear if infectious vs tumor fever holding antibiotics for now follow up cultures, resp viral panel ID eval macrocytic anemia check b12, folate Quality Stroke Does the patient have a stroke diagnosis?: No VTE Prior VTE?: No VTE Risk Level:: Medical - moderate - high VTE Device Contraindication: Treatment Not Indicated VTE Drug Contraindication: N/A - Med Ordered
[2020-12-12 11:08] LABS: Adenovirus PCR Not Detected (Not Detect.); Bordetella parapertussis PCR Not Detected (Not Detect.); Bordetella pertussis PCR Not Detected (Not Detect.); Chlamydia pneumoniae PCR Not Detected (Not Detect.); Coronavirus 229E PCR Not Detected (Not Detect.); Coronavirus HKU1 PCR Not Detected (Not Detect.); Coronavirus NL63 PCR Not Detected (Not Detect.); Coronavirus OC43 PCR Not Detected (Not Detect.); Human metapneumovirus PCR Not Detected (Not Detect.); Influenza A PCR Not Detected (Not Detect.); Influenza B PCR Not Detected (Not Detect.); Mycoplasma pneumoniae PCR Not Detected (Not Detect.); Parainfluenza 1 PCR Not Detected (Not Detect.); Parainfluenza 2 PCR Not Detected (Not Detect.); Parainfluenza 3 PCR Not Detected (Not Detect.); Parainfluenza 4 PCR Not Detected (Not Detect.); RSV PCR Not Detected (Not Detect.); Rhino/Enterovirus PCR Not Detected (Not Detect.); SARS-CoV-2 PCR Not Detected (Not Detect.)
[2020-12-12] MEDS: Enoxaparin Sodium 40 MG/0.4 ML SYRINGE SUBCUT (12:20)
--- NOTE | 2020-12-12 12:31 | MHC.CM.PN ---
Male 50 DX Liver Mass. Patient is listed as self pay. A referral has been faxed to [facility], for a consult. A tiger text was sent as well.
[2020-12-12 14:02] LABS: Hepatitis B Core Antibody IgM NON-REACTIVE (NON-REACTIVE)
--- NOTE | 2020-12-12 14:37 | W.PM.IDCN ---
History of Present Illness Data of Consult Service Date: 12/12/20 Requesting physician: Frankie Merrill Primary Care Provider: None Physician HPI Reason for consult: abdominal pain He presents to hospital for abdominal discomfort RUQ for four days. He has no nausea or vomiting. No one else is ill CT scan shows liver mass. He has leukocytosis but no fever or chills Review of Systems Review of Systems: Yes all other systems are reviewed and are negative PMF Past Medical History Medical History (Updated 12/12/20 @ 14:48 by Salena Montague MD) HBV (hepatitis B virus) infection Leukocytosis Liver cirrhosis Family History Family history: reviewed and not pertinent Social History Social History Household Members: None, Unknown / Unable to assess and Other Housing: Apartment Alcohol intake: current Patient Tobacco Use Status: Former Tobacco user service: No Current occupational status: unemployed Meds Allergies Allergy/AdvReac Type Severity Reaction Status Date / Time No Known Allergies Allergy Verified 12/08/20 12:00 Active Medications: Current Medications Generic Name Dose Route Start Last Admin Trade Name Freq PRN Reason Stop Dose Admin Acetaminophen 650 mg 12/11/20 00:20 12/11/20 21:12 Acetaminophen 325 Mg Tablet PO 650 mg Q6H PRN Administration Pain, Mild (Pain Scale 1-3) Enoxaparin Sodium 40 mg 12/12/20 11:00 12/12/20 12:20 Enoxaparin Sodium 40 Mg/0.4 Ml Syringe SUBCUT 40 mg Q24H KRISTIE Administration Multivitamins/Minerals 1 tab 12/09/20 09:00 12/12/20 08:05 Multivitamin With Minerals Tablet PO 1 tab DAILY KRISTIE Administration Oxycodone HCl 5 mg 12/08/20 17:38 12/10/20 10:54 Oxycodone Hcl Immed Release 5 Mg Tablet PO 5 mg Q6H PRN Administration pain Pharmacy Consult 1 each 12/08/20 15:26 Consult Rx Perform Med Rec MISCELLANE ONCE PRN Consult order Pharmacy Consult 1 each 12/08/20 17:26 Consult Rx Perform Med Rec MISCELLANE ONCE PRN Consult order Sodium Chloride 3 ml 12/09/20 00:00 12/12/20 08:05 0.9 % Sodium Chloride Flush 3 Ml Syringe IVFLUSH 3 ml QSHIFT KRISTIE Administration Home Medications Medication Instructions Recorded Confirmed Last Taken Type multivitamin-ferrous 1 tab PO DAILY 12/08/20 12/08/20 12/06/20 History fumarate-folic acid 18 mg-400 mcg tablet (Centrum) Physical Exam Vital Signs: Vital Signs: Last Vital Signs Temp 99.6 F 12/12/20 10:36 Pulse 83 12/12/20 10:36 Resp 18 12/12/20 10:36 BP 111/63 12/12/20 10:36 Pulse Ox 95 12/12/20 10:36 Body Mass Index 29.0 Const: General: cooperative Orientation/consciousness: patient oriented x3 HENMT: Head: Yes normal to inspection Mouth: Normal oral and palatal mucosa present Eyes: General: appearance normal, both eyes and all related structures Resp: Effort & Inspection: normal respiratory effort Cardio: Rate: regular rate Rhythm: regular rhythm GI: Palpation (GI): Soft to palpation and Tenderness to palpation present (GI) in the epigastrum and in the RUQ Skin: General skin exam: no rashes or lesions noted Neuro: General: patient oriented x3 Extrem: General: Yes normal to inspection Results Labs CBC & Chem 7: 12/13/20 05:07 12/13/20 05:07 Labs: Short CBC 12/11/20 Range/Units 20:11 WBC 21.3 H (4.8-10.8) X10*3/uL Hgb 10.6 L (14.0-18.0) g/dl Hct 32.3 L (42-52) % Plt Count 197 (160-400) X10*3/uL Microbiology Microbiology Results: Microbiology 12/08/20 14:30 Blood - Venous Blood Culture - Preliminary No growth after 48 hours. 12/08/20 14:28 Blood - Venous Blood Culture - Preliminary No growth after 48 hours. 12/08/20 Unknown Urine clean catch - Urine king top Urine Culture - Final No growth. Assessment and Plan (1) Cancer of liver: Status: Acute (2) HBV (hepatitis B virus) infection: Status: Acute (3) Liver cirrhosis: Status: Acute (4) Leukocytosis: Status: Acute Leukocytosis leukemoid reaction which is related to malignancy There is no urine infection or bacteremia at this time Agree with management without antibiotics
[2020-12-12] MEDS: Acetaminophen 325 MG TABLET 650 MG PO (19:30)
[2020-12-12] MEDS: vancomycin HCL 125 MG CAPSULE PO (19:31)
[2020-12-12] MEDS: oxyCODONE HCl Immed Release 5 MG TABLET PO (19:31)
[2020-12-12] MEDS: cefTRIAXone sodium 1 GM in 0.9 % Sodium Chloride 50 ML IV (19:36)
[2020-12-12 20:16] LABS: CDiff Gene PCR NEGATIVE (Negative)
[2020-12-13] MEDS: vancomycin HCL 125 MG CAPSULE PO (00:01)
[2020-12-13] MEDS: 0.9 % Sodium Chloride Flush 3 ML SYRINGE IVFLUSH ×2 (00:01→09:32)
[2020-12-13 03:30] VITALS: BP 121/57; PULSE 93; RESP 20; TEMP 38.9; O2SAT 98
[2020-12-13] MEDS: Acetaminophen 325 MG TABLET 650 MG PO (03:33)
[2020-12-13 05:30] VITALS: TEMP 37.4
[2020-12-13 06:38] LABS: Hematocrit 31.5 % (42-52); Hemoglobin 10.2 g/dl (14.0-18.0); Mean Corpuscular HGB Conc 32.4 g/dl (31.0-36.0); Mean Corpuscular Hemoglobin 33.2 pg (27.0-33.0); Mean Corpuscular Volume 102.6 fL (80-98); Platelet Count 208 X10*3/uL (160-400); Red Blood Count 3.07 X10*6/uL (4.60-5.80); Red Cell Distribution Width 12.7 % (11.0-16.0); White Blood Count 25.3 X10*3/uL (4.8-10.8)
[2020-12-13 06:57] VITALS: BP 105/63; PULSE 70; RESP 18; TEMP 36.4; O2SAT 97
[2020-12-13 07:04] LABS: Alanine Aminotransferase 47 U/L (0-40); Albumin Level 2.4 g/dL (3.5-5.0); Alkaline Phosphatase 124 U/L (39-117); Anion Gap 11 (12-20); Aspartate Amino Transferase 44 U/L (5-37); Bilirubin Direct 0.8 mg/dL (0.0-0.5); Bilirubin Total 1.1 mg/dL (0.0-1.0); Blood Urea Nitrogen 13 mg/dL (9-16); Calcium 7.8 mg/dL (8.4-10.2); Carbon Dioxide 24 mmol/L (22-29); Chloride 102 mmol/L (96-108); Creatinine Clr Calc Pharmacy 120.9; Estimated Glomerular Filt Rate > 60; Glucose Fasting 93 mg/dL (60-99); Potassium 3.8 mmol/L (3.3-5.1); Sodium 133 mmol/L (135-145); Total Protein 6.1 g/dL (6.5-8.0)
--- NOTE | 2020-12-13 07:30 | CA_ITS ---
Transthoracic Echocardiogram Patient (Last, First, Middle): Sang Teixeira, Gender: Male Date of : 1970 Age: 50 Procedure Date: 12/13/2020 Procedure Type: Transthoracic Echocardiogram Location: [facility] [place] Height: 165.1 cm Weight: 78.93 kg BSA: 1.86 m2 Heart Rate: bpm BP: 121 / 57 mmHg Nip Wrapper: RACHELL Schafer MD: Frankie Merrill MD Symptoms: pericardial effusion Study Quality: Fair Conclusions: - Normal left ventricular size, thickness, systolic function, and wall motion. - Normal right ventricular cavity size and systolic function. - There is a small loculated pericardial effusion overlying the left ventricle. There are no definitive echocardiographic findings of tamponade physiology. Findings Left Ventricle Normal left ventricular size, thickness, systolic function, and wall motion. The visually estimated ejection fraction is between 55-60%. Diastolic function is normal for age. Right Ventricle Normal right ventricular cavity size and systolic function. Atria The left atrium is normal in size. The right atrium is mildly dilated. Aortic Valve Normal aortic valve structure and function. There is no aortic valve stenosis. There is no aortic valve regurgitation. Mitral Valve Normal mitral valve structure and function. There is no mitral valve regurgitation. There is no mitral valve stenosis. Pulmonic Valve Normal pulmonic valve structure and function. There is trace pulmonic valve regurgitation. Tricuspid Valve Normal tricuspid valve structure and function. There is mild tricuspid valve regurgitation. Normal right atrial pressure. Mild pulmonary hypertension is present. Great Vessels There is mild dilatation of the ascending aorta. The visualized portions of the pulmonary artery and branches are normal. Venous The inferior vena cava is normal in size and collapses greater than 50% with inspiration. Pericardium/Pleural There is a small loculated pericardial effusion overlying the left ventricle. There are no definitive echocardiographic findings of tamponade physiology. Prior Study Comparison No prior study available for comparison. Measurements 2D Linear Measurements IVSd: 0.86 0.6-0.9/0.6-1.0 cm LVIDd: 5.13 3.9-5.3/4.2-5.9 cm LVIDd Index: 2.76 2.4-3.2/2.2-3.1 cm/m2 LVIDs: 3.58 2.0-3.6 cm LVPWd: 0.99 0.7-1.1 cm Ao Root: 3.50 2.1-3.5 cm LA Diam: 3.50 2.7-3.8/3.0-4.0 cm LAIDs Index: 1.88 1.5-2.3 cm/m2 LV Mass: 212.81 67-162/88-224 g LV Mass Index: 114.41 43-95/49-115 g/m2 LVOT Diam: 2.00 3.0+(-)1.3 cm Mitral Valve MV Pk E: 0.96 MV PK A: 0.86 MV Decel Time: 289.00 E/A: 1.10 E'Lateral: 10.60 E'Medial: 8.70 E/E' Med: 11.10 E/E' Lat: 9.10 PHT: 85.00 MVA PHT: 2.59 Decel [place]: 3.34 Aortic Valve AoV Pk Vadim: 2.15 AoV Mn Vadim: 1.41 AoV VTI: 0.38 AoV Pk Grad: 18.00 Aov Mn Grad: 10.00 GUY Cont.VTI: 2.07 LVOT LVOT Pk Vadim: 1.50 LVOT Mn Vadim: 0.90 LVOT VTI: 0.25 LVOT Pk Grad: 9.00 LVOT Mn Grad: 4.00 LVOT Diam: 2.00 LVOT Area: 3.14 Diastolic Function MV Pk E: 0.96 MV Pk A: 0.86 E/A: 1.10 E'Medial: 8.70 E/E' Med: 11.10 E' Laterial: 10.60 E/E' Lat: 9.10 Tricuspid Valve TR Pk Vadim: 2.95 TR Pk Grad: 35.00 RA Press: 3.00 RVSP: 40.00 Great Vessels Aorta Ao Root-2D: 3.50 2.0-3.7 cm Ao Asc: 3.80 2.1-3.4 cm Ao Arch: 2.60 Updated in Other Vendor System with Status of Final Khang Giraldo MD electronically signed on 12/13/2020 7:53:20 PM with status of Final
[2020-12-13 08:59] LABS: Folate 6.3 ng/mL (> or = 4.0); Vitamin B12 > 2000 pg/mL (200-900)
[2020-12-13 11:12] VITALS: BP 96/50; PULSE 86; RESP 20; TEMP 36; O2SAT 96
--- NOTE | 2020-12-13 12:48 | MHC.CM.PN ---
pt dcd home with [facility] pending thru finacial servceis
== END 2020-12-13 14:15 | disposition home or self-care (01) ==
LOC: HO.ED 14:29 → HO.EDOVER 17:58 → HO.IMC 19:47
PROVIDERS: Internal Medicine; Physician Assistant; Radiology Diagnostic Radiology; Admitting Provider Internal Medicine; Emergency Provider Internal Medicine; Visit Provider Internal Medicine
DX: K74.60 Unspecified cirrhosis of liver (principal); C22.0 Liver cell carcinoma; R50.82 Postprocedural fever; B19.10 Unspecified viral hepatitis B without hepatic coma; D72.829 Elevated white blood cell count, unspecified; Z20.822 Contact with and (suspected) exposure to COVID-19; Z87.891 Personal history of nicotine dependence; Z79.899 Other long term (current) drug therapy
CPT/HCPCS: 36415; 47000; 71260; 74177; 77012; 80048; 80076; 81001; 82105; 82607; 82746; 83605; 83615; 83735; 85025; 85027; 85610; 85730; 86704; 86705; 86706; 86803; 87040; 87086; 87340; 87493; 87633; 87635; 88307; 88313; 88341; 88342; 93306; 99152; 99153; 99285; C1729; J0696; J1650; J2543; Q9967

== ENCOUNTER → 2023-12-30 10:26 | Outpatient (RCR) | payer MEDICAID, OTHER, SELFPAY ==
--- NOTE | 2020-12-21 08:10 | HE.ONCSEC ---
On 12/21/20 I notified Maile that this patient has Medicaid Limited and [employer] Secondary and is seeing Dr. Pollard on 12/21/20 as a new consult. Dr. Pollard saw him when he was inpatient in November 2020. Per family member, his discharge paperwork states he is to follow up with Dr. Pollard.
[2020-12-21 10:19] VITALS: BP 129/65; PULSE 95; RESP 20; TEMP 36.7; O2SAT 97; BMI 29.0
--- NOTE | 2020-12-21 10:21 | PM.HEMONCPN ---
Medical Summary - Medical Summary Date of Service: 12/21/20 Chief complaint: Follow-up from hospital discharge Medical Summary: Diagnosis: Hepatocellular carcinoma and chronic active hepatitis-B Patient was admitted November 2020 for right upper quadrant abdominal pain, found to have suspicious liver mass in the background of HBV liver cirrhosis. He underwent liver biopsy on 12/11/2020, Pathology-Poorly differentiated carcinoma involving liver parenchyma with cirrhosis (see comment). COMMENT: The immunohistochemical stain profile is not specific with regard to site of origin. Given the lack of expression of both CK7 and CK20, a hepatocellular cell carcinoma is favored and cholangiocarcinoma is less likely. Correlation with clinical findings as well as imaging is advised. Interval History Interval history: Patient was asked to come in today to discuss results of biopsy. 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 He has not been doing well, continues to have persistent abdominal pain as well as nausea. His appetite is poor. He feels very weak and occasionally throws up. He is planning to go back to [place] where his sister lives and where he was living for the last few years. He came to [place] for work but because of his symptoms and medical issues he has not been able to work. Review of Systems - Constitutional Reports as per HPI, Reports anorexia, Reports fatigue, Reports lack of energy, Reports malaise, Reports poor appetite, Reports weight loss PMFSH Medical History: Medical History (Last Updated 12/12/20 @ 14:48 by Salena Montague MD) HBV (hepatitis B virus) infection Leukocytosis Liver cirrhosis Social History: Social History (Last Reviewed 12/12/20 @ 14:46 by Salena Montague MD) Living Situation History: Household Members: None Household Members: Unknown / Unable to asses Household Members: Other Housing: Apartment Alcohol History: Alcohol intake: current Tobacco History: Patient Tobacco Use Status: Former Tobacco user Occupation Assessmet: service: No Current occupational status: unemployed Home Medications and Allergies Allergies Allergy/AdvReac Type Severity Reaction Status Date / Time No Known Allergies Allergy Verified 12/08/20 12:00 Exam Vital signs: Vital Signs Temp Pulse Resp BP Pulse Ox 12/21/20 10:19 98.1 F 95 20 129/65 97 Intake and Output 12/20/20 12/21/20 12/21/20 22:59 06:59 14:59 Other: Weight 79.1 kg Weight in Grams [id number] Patient Weight 12/22/20 06:59 Weight 79.1 kg - Constitutional Present: mild distress, thin, chronically ill appearing - Routine HEENT Exam Eye: Present: conjunctivae pale, scleral icterus - Routine Respiratory Exam Absent: accessory muscle use, respiratory distress - Routine Cardiovascular Exam Cardiovascular: Present: S1, S2 - Routine Abdominal Exam Present: organomegaly, tenderness - Routine Skin Exam Absent: cyanosis - Routine Neurological Exam Present: alert, oriented X3 Assessment and Plan Patient Active problem list reviewed?: Yes (1) Hepatocellular carcinoma Status: Acute Assessment and plan: 1. This is a 50-year-old male with chronic active hepatitis-B, liver cirrhosis who has been diagnosed with liver cancer. Biopsy of liver mass performed 12/11/2020 revealed poorly differentiated carcinoma involving liver parenchyma, probable hepatocellular carcinoma. AFP was only 9. He underwent CT chest/abdomen and pelvis on 12/08/2020 which revealed- Cirrhotic liver with a large mass replacing the right lobe which can be seen with hepatocellular carcinoma or even cholangiocarcinoma. Pathologic lymph nodes throughout the abdomen and retroperitoneum. Ascites, pleural and pericardial effusions are also present. I discussed above findings with patient and his [id number]. Patient also appears to have a chronic active hepatitis-B. He needs to be seen urgently by Infectious Disease specialist as well to determine treatment. His liver functions appear to be deteriorating quite rapidly. Systemic therapy for his hepatocellular carcinoma will also have to be addressed and will need oncology consultation. He is planning to go back to [place] in a day or 2 to be with his family. They are planning to go to the local hospital where he was admitted previously. Copy of all the imaging studies, pathology report, blood work has been printed and given to the patient. Thank you. - Time Spent With Patient Time Spent with Patient (in minutes): 30
--- NOTE | 2020-12-21 11:13 | MHC.HEMONCMA ---
Dr. Pollard informed me that patient will not be undergoing treatments at this facility because the patient and his family will be transferring his care to [place]. I confirmed this information with the patient and his [id number], when i met with the. Due this development, patient was not referred to financial counselling dept. because patient already met with [facility] [facility] financial counselor.
--- NOTE | 2020-12-21 15:14 | MHC.HEMONCMA ---
Pt came in for onc consult and states he is doing okay, pts clinical summary was updated and labs were drawn. pt will schedule follow up appointment.
== END | disposition home or self-care (01) ==
LOC: HO.ONC 12-21 10:10
PROVIDERS: Referring Provider Internal Medicine; Visit Provider Internal Medicine
DX: C22.0 Liver cell carcinoma (principal); B18.1 Chronic viral hepatitis B without delta-agent; K74.60 Unspecified cirrhosis of liver
CPT/HCPCS: 99214